=== PATIENT | female | born 1940 | race Caucasian/White ===

== ENCOUNTER 2018-10-28 16:27 | Inpatient (IN) | payer MEDICARE, OTHER | END 2018-10-29 13:35 | LOC: ER FS 16:27 → 4TH 18:22 ==

== ENCOUNTER 2018-11-24 11:29 | Emergency (ER) | payer MEDICARE ==
[~2018-11-24] VITALS: Ht 177.8 cm; Wt 87.5 kg
[~2018-11-24 11:29] MED LIST: ACET325C5 PO; ASPI-586 PO; CETI10CA PO; CHOL10007 PO; CYAN100088 PO; DIPH25CA79 PO; DONE10TA12 PO; LEVO25TA5 PO; LISI10TA2 PO; MELA1TAB8 PO; MEMA10TA2 PO; NAPR220C11 PO; QUET50TA PO
--- NOTE | 2018-11-24 11:54 | ED Chest Pain ---
General Stated Complaint: CHEST PAIN Source: patient, EMS Exam Limitations: clinical condition (dementia) History of Present Illness Date Seen by Provider: Nov 24, 2018 Time Seen by Provider: 11:35 Initial Comments The patient is a pleasant 78-year-old female who [facility] via EMS for evaluation of upper chest pain. The patient states "I feel like I'm going to ". Due to the patient's history of dementia she is a very poor historian. There is no other family to provide additional history at this time. EMS notes that the patient was bradycardic in route and believes that she has been to this facility recently for bradycardia. The patient has no other complaints at this time. She is alert, somewhat anxious, and appears to be in no distress. She denies nausea or vomiting, diaphoresis, shortness of breath, abdominal or back pain, dizziness or syncope. Review the patient's history suggests coronary artery disease status post emplacement and MD. On 10/28/18 she was admitted for the same complaint and evaluated by cardiology. Timing/Duration: 1-3 hours Severity/Quality: moderate Location: substernal Radiation: no radiation Activities at Onset: none ASA po APRICOT WASHER: No NTG SL APRICOT WASHER: No Allergies and Home Medications Allergies Coded Allergies: Penicillins (Verified Allergy, Unknown, 10/28/18) Home Medications Acetaminophen 325 Mg Capsule, 650 MG PO Q6H PRN for PAIN-MILD, (Reported) Aspirin 81 Mg Tablet.dr, 81 MG PO DAILY, (Reported) Cetirizine HCl 10 Mg Capsule, 10 MG PO DAILY, (Reported) Cholecalciferol (Vitamin D3) 1,000 Unit Capsule, 1,000 UNIT PO DAILY, (Reported) Cyanocobalamin (Vitamin B-12) 1,000 Mcg Tablet, 1,000 MCG PO DAILY, (Reported) Diphenhydramine HCl 25 Mg Capsule, 25 MG PO DAILY PRN for ITCHING, (Reported) PRN FOR ALLERGIES Donepezil HCl 10 Mg Tablet, 10 MG PO DAILY, (Reported) Levothyroxine Sodium 25 Mcg Tablet, 25 MCG PO DAILY, (Reported) Lisinopril 10 Mg Tablet, 10 MG PO DAILY, (Reported) Melatonin 1 Mg Tablet, 2 MG PO HS, (Reported) Memantine HCl 10 Mg Tablet, 10 MG PO BID, (Reported) Naproxen Sodium 220 Mg Capsule, 220 MG PO BID, (Reported) Quetiapine Fumarate 50 Mg Tablet, 50 MG PO HS, (Reported) Patient Home Medication List Home Medication List Reviewed: Yes Review of Systems Review of Systems Constitutional: no symptoms reported EENTM: No Symptoms Reported Respiratory: No Symptoms Reported Cardiovascular: Chest Pain Gastrointestinal: No Symptoms Reported Genitourinary: No Symptoms Reported Musculoskeletal: no symptoms reported Skin: no symptoms reported Psychiatric/Neurological: No Symptoms Reported Endocrine: No Symptoms Reported Hematologic/Lymphatic: No Symptoms Reported All Other Systems Reviewed Negative Unless Noted: Yes Past Kilodhs-Lgwijk-Xansdg Hx Past Med/Social Hx: Reviewed Nursing Past Med/Soc Hx Patient Social History 2nd Hand Smoke Exposure: No Recent Hopitalizations: No Seasonal Allergies Seasonal Allergies: No Past Medical History Surgeries: Yes Coronary Stent, Hysterectomy Respiratory: No Cardiac: Yes Coronary Artery Disease, Heart Attack Neurological: Yes Dementia Genitourinary: No Gastrointestinal: No Musculoskeletal: No Endocrine: Yes Hypothyroidsim HEENT: No Cancer: Yes Ovarian Psychosocial: No Integumentary: No Family Medical History Alzheimer's disease G8 SISTER Diabetes mellitus 19 MOTHER FH: lung cancer 19 FATHER G8 BROTHER Physical Exam Vital Signs Vital Signs - First Documented 11/24/18 11:35 Temp 97.3 Pulse 49 Resp 18 B/P (MAP) 184/73 (110) Pulse Ox 95 O2 Delivery Room Air Capillary Refill : Height, Weight, BMI Height: 5'10.00" Weight: 185lbs. 0.0oz. 83.185661mj; 26.5 BMI Method:Stated General Appearance: No Apparent Distress, WD/WN HEENT: PERRL/EOMI, Pharynx Normal Neck: Full Range of Motion, Normal Inspection, Non Tender, Supple Respiratory: Chest Non Tender, Lungs Clear, Normal Breath Sounds, No Accessory Muscle Use, No Respiratory Distress Cardiovascular: No Edema, No Gallop, Normal Peripheral Pulses, Bradycardia Gastrointestinal: Normal Bowel Sounds, No Pulsatile Mass, Non Tender, Soft Extremity: Normal Capillary Refill, Non Tender Neurologic/Psychiatric: Alert, Oriented x3, No Motor/Sensory Deficits, Normal Mood/Affect, recreation specialist II-XII Norm as Tested Skin: Normal Color, Warm/Dry Progress/Results/Core Measures Results/Orders Lab Results Laboratory Tests Test 11/24/18 11:55 11/24/18 15:45 Range/Units White Blood Count 6.6 4.3-11.0 10^3/uL Red Blood Count 4.22 L 4.35-5.85 10^6/uL Hemoglobin 12.6 11.5-16.0 G/DL Hematocrit 39 35-52 % Mean Corpuscular Volume 92 80-99 FL Mean Corpuscular Hemoglobin 30 25-34 PG Mean Corpuscular Hemoglobin Concent 33 32-36 G/DL Red Cell Distribution Width 13.4 10.0-14.5 % Platelet Count 271 130-400 10^3/uL Mean Platelet Volume 9.1 7.4-10.4 FL Neutrophils (%) (Auto) 59 42-75 % Lymphocytes (%) (Auto) 24 12-44 % Monocytes (%) (Auto) 8 0-12 % Eosinophils (%) (Auto) 9 0-10 % Basophils (%) (Auto) 1 0-10 % Neutrophils # (Auto) 3.9 1.8-7.8 X 10^3 Lymphocytes # (Auto) 1.6 1.0-4.0 X 10^3 Monocytes # (Auto) 0.5 0.0-1.0 X 10^3 Eosinophils # (Auto) 0.6 H 0.0-0.3 10^3/uL Basophils # (Auto) 0.1 0.0-0.1 10^3/uL Prothrombin Time 13.4 12.2-14.7 SEC INR Comment 1.0 0.8-1.4 Activated Partial Thromboplast Time 25 24-35 SEC Sodium Level 142 135-145 MMOL/L Potassium Level 4.1 3.6-5.0 MMOL/L Chloride Level 103 98-107 MMOL/L Carbon Dioxide Level 25 21-32 MMOL/L Anion Gap 14 5-14 MMOL/L Blood Urea Nitrogen 15 7-18 MG/DL Creatinine 1.17 0.60-1.30 MG/DL Estimat Glomerular Filtration Rate 45 BUN/Creatinine Ratio 13 Glucose Level 110 H 70-105 MG/DL Calcium Level 9.4 8.5-10.1 MG/DL Corrected Calcium 9.2 8.5-10.1 MG/DL Magnesium Level 2.1 1.6-2.4 MG/DL Total Bilirubin 0.3 0.1-1.0 MG/DL Aspartate Amino Transf (AST/SGOT) 21 5-34 U/L Alanine Aminotransferase (ALT/SGPT) 16 0-55 U/L Alkaline Phosphatase 69 40-136 U/L Creatine Kinase MB 2.1 <6.6 NG/ML Troponin I < 0.30 < 0.30 <0.30 NG/ML Pro-B-Type Natriuretic Peptide 51.8 <75.0 PG/ML Total Protein 6.9 6.4-8.2 GM/DL Albumin 4.2 3.2-4.5 GM/DL My Orders Orders - AUBREY CASTANO DO Cbc With Automated Diff (11/24/18 11:46) Magnesium (11/24/18 11:46) Chest 1 View Ap/Pa Only (11/24/18 11:46) Ekg Tracing (11/24/18 11:46) Comprehensive Metabolic Panel (11/24/18 11:46) Protime With Inr (11/24/18 11:46) Partial Thromboplastin Time (11/24/18 11:46) O2 (11/24/18 11:46) Monitor-Rhythm Ecg Trace Only (11/24/18 11:46) Ed Iv/Invasive Line Start (11/24/18 11:46) Creatine Kinase Mb (11/24/18 11:46) Troponin I (11/24/18 11:46) Probnp Fs (11/24/18 11:46) Aspirin Chewable Tablet (Baby Aspirin Ch (11/24/18 12:00) Troponin I (11/24/18 14:20) Aspirin Chewable Tablet (Baby Aspirin Ch (11/24/18 14:00) Medications Given in ED Current Medications Medications Dose Ordered Sig/Anna Route Start Time Stop Time Status Last Admin Dose Admin Aspirin 243 mg ONCE ONCE PO 11/24/18 14:00 11/24/18 14:01 DC 11/24/18 12:00 243 MG Vital Signs/I&O 11/24/18 11:35 Temp 97.3 Pulse 49 Resp 18 B/P (MAP) 184/73 (110) Pulse Ox 95 O2 Delivery Room Air Progress Progress Note : Progress Note @1410 - Patient and daughter updated on lab and imaging results. The patient reports feeling much better. The patient's daughter states this is the same type of episode that happened at the beginning of the month and the Dr. Leon, her tangled yarn spool straightener, and her head decided to continue medical management. We are waiting on the second troponin that is negative I plan on discharging the patient home and the patient's daughter agrees with this plan. @1630 - second troponin negative. The patient states she feels good and has no additional complaints. She is stable for discharge at this time. Advised close follow-up with the patient's PCP and/or tangled yarn spool straightener in the next 1-2 days and r eturn to the emergency department for new or worsening symptoms. EKG : Comment @1139 - Sinus bradycardia, rate of 52, normal axis, no acute ischemic findings noted, no STEMI, reviewed and interpreted by myself Diagnostic Imaging Comments [facility] SERVICES[facility] [place], [place] NAME: CLIFTON ROBLES [facility] REC#: [id number] PT STATUS: REG ER : 1940 PHYSICIAN: AUBREY CASTANO DO ADMIT DATE: 11/24/18/ER FS Draft Date of Exam:11/24/18 CHEST 1 VIEW AP/PA ONLY INDICATION: Chest pain. COMPARISON: 10/28/2018 FINDINGS: Single frontal view of the chest demonstrates normal heart size and pulmonary vascularity. The lungs are well aerated and clear. No large pleural effusion or pneumothorax is seen. The visualized osseous structures show no acute abnormalities. IMPRESSION: 1. No acute cardiopulmonary process. Dictated on workstation # [id number] Dict: 11/24/18 1241 Trans: 11/24/18 1244 [facility] [id number] Interpreted by: ARNULFO LYN MD Electronically signed by: Departure Impression Primary Impression: Chest pain Disposition: 01 HOME, SELF-CARE Condition: Stable Departure-Patient Inst. Decision time for Depature: 16:30 Referrals: ADITI LEON MD NO,LOCAL PHYSICIAN (PCP) Primary Care Physician Patient Instructions: Chest Pain Add. Discharge Instructions: Follow-up with Dr. Leon in the next 1-2 days. Return to the emergency Department immediately for new or worsening symptoms. AUBREY CASTANO DO Nov 24, 2018 11:54
[2018-11-24] MEDS: ASPIRIN 81 MG CHEW (CHILDREN'S ASA) PO ONE ×2 (12:00→13:47)
[2018-11-24 12:13] LABS: HEMATOCRIT 39 % (35-52); HEMOGLOBIN 12.6 G/DL (11.5-16.0); MEAN CORPUSCULAR HEMOGLOBIN 30 PG (25-34); MEAN CORPUSCULAR HGB CONC 33 G/DL (32-36); MEAN CORPUSCULAR VOLUME 92 FL (80-99); PLATELET COUNT 271 10^3/uL (130-400); RED CELL DISTRIBUTION WIDTH 13.4 % (10.0-14.5); WHITE BLOOD COUNT 6.6 10^3/uL (4.3-11.0)
[2018-11-24 12:14] LABS: BASOPHILS # (AUTO) 0.1 10^3/uL (0.0-0.1); BASOPHILS % (AUTO) 1 % (0-10); EOSINOPHILS # (AUTO) 0.6 10^3/uL (0.0-0.3); EOSINOPHILS % (AUTO) 9 % (0-10); LYMPHOCYTES # (AUTO) 1.6 X 10^3 (1.0-4.0); LYMPHOCYTES % (AUTO) 24 % (12-44); MEAN PLATELET VOLUME 9.1 FL (7.4-10.4); MONOCYTES # (AUTO) 0.5 X 10^3 (0.0-1.0); MONOCYTES % (AUTO) 8 % (0-12); NEUTROPHILS # (AUTO) 3.9 X 10^3 (1.8-7.8); NEUTROPHILS % (AUTO) 59 % (42-75)
[2018-11-24 12:31] LABS: PROTHROMBIN TIME PATIENT 13.4 SEC (12.2-14.7)
[2018-11-24 12:41] LABS: BILIRUBIN,TOTAL 0.3 MG/DL (0.1-1.0); CALCIUM 9.4 MG/DL (8.5-10.1); CREATININE SERUM 1.17 MG/DL (0.60-1.30); MAGNESIUM 2.1 MG/DL (1.6-2.4); POTASSIUM 4.1 MMOL/L (3.6-5.0)
[2018-11-24 12:42] LABS: ALBUMIN 4.2 GM/DL (3.2-4.5); TOTAL PROTEIN 6.9 GM/DL (6.4-8.2)
--- NOTE | 2018-11-24 12:44 | Diagnostic Imaging Report ---
INDICATION: Chest pain. COMPARISON: 10/28/2018 FINDINGS: Single frontal view of the chest demonstrates normal heart size and pulmonary vascularity. The lungs are well aerated and clear. No large pleural effusion or pneumothorax is seen. The visualized osseous structures show no acute abnormalities. IMPRESSION: 1. No acute cardiopulmonary process. Dictated by: Dictated on workstation # [id number]
[2018-11-24 14:58] LABS: CREATINE KINASE MB 2.1 NG/ML (<6.6)
[2018-11-24 16:43] VITALS: BP 130/58
== END 2018-11-24 16:45 | disposition home or self-care (01) ==
LOC: EDUNIT# 11:29 → ER FS 11:31
DX: R07.9 Chest pain, unspecified (principal); F03.90 Unspecified dementia, unspecified severity, without behavioral disturbance, psychotic disturbance, mood disturbance, and anxiety; I25.10 Atherosclerotic heart disease of native coronary artery without angina pectoris; I25.2 Old myocardial infarction; E03.9 Hypothyroidism, unspecified; Z85.43 Personal history of malignant neoplasm of ovary; Z88.0 Allergy status to penicillin; Z79.82 Long term (current) use of aspirin; Z95.5 Presence of coronary angioplasty implant and graft; Z90.710 Acquired absence of both cervix and uterus; Z80.1 Family history of malignant neoplasm of trachea, bronchus and lung
CPT/HCPCS: 36415; 71045; 80053; 82553; 83735; 83880; 84484; 85025; 85610; 85730; 93005; 93041

== ENCOUNTER 2020-04-12 14:13 | Emergency (ER) | payer MEDICARE, OTHER ==
[~2020-04-12 14:13] MED LIST changes: -ACET325C5 PO; +ACET325C7 PO
--- NOTE | 2020-04-12 14:23 | ED Fall/Injury ---
General Stated Complaint: STROKE LIKE SYMPTOMS History of Present Illness Date Seen by Provider: Apr 12, 2020 Time Seen by Provider: 14:15 Initial Comments 79-year-old female sent in from the custodial by EMS. Patient had a fall this morning but they're unsure if she hit her head. Her patient was seen normal around 12:30. Round to when they rechecked on her that there was some mild left- sided weakness. Upon arrival patient has some mild to minimal facial droop but otherwise moves both of her upper and lower extremities equally with equal strength. Patient is a DO NOT RESUSCITATE with minimal interventions. No reports of fevers chills nausea vomiting or other systemic complaints. Patient has dementia and is at her baseline per EMS upon arrival Allergies and Home Medications Allergies Coded Allergies: Penicillins (Verified Allergy, Unknown, 10/28/18) Home Medications Acetaminophen 325 Mg Capsule, 650 MG PO Q6H PRN for PAIN-MILD, (Reported) Aspirin 81 Mg Tablet.dr, 81 MG PO DAILY, (Reported) Cetirizine HCl 10 Mg Capsule, 10 MG PO DAILY, (Reported) Cholecalciferol (Vitamin D3) 1,000 Unit Capsule, 1,000 UNIT PO DAILY, (Reported) Cyanocobalamin (Vitamin B-12) 1,000 Mcg Tablet, 1,000 MCG PO DAILY, (Reported) Diphenhydramine HCl 25 Mg Capsule, 25 MG PO DAILY PRN for ITCHING, (Reported) PRN FOR ALLERGIES Donepezil HCl 10 Mg Tablet, 10 MG PO DAILY, (Reported) Levothyroxine Sodium 25 Mcg Tablet, 25 MCG PO DAILY, (Reported) Lisinopril 10 Mg Tablet, 10 MG PO DAILY, (Reported) Melatonin 1 Mg Tablet, 2 MG PO HS, (Reported) Memantine HCl 10 Mg Tablet, 10 MG PO BID, (Reported) Naproxen Sodium 220 Mg Capsule, 220 MG PO BID, (Reported) Quetiapine Fumarate 50 Mg Tablet, 50 MG PO HS, (Reported) Patient Home Medication List Home Medication List Reviewed: Yes Review of Systems Review of Systems Constitutional: see HPI; No chills, No fever Ears, Nose, Mouth, Throat: see HPI Respiratory: no symptoms reported Cardiovascular: no symptoms reported Gastrointestinal: no symptoms reported Genitourinary: no symptoms reported Psychiatric/Neurological: See HPI Patient with dementia with limited review of systems but no complaints per her Past Nfhmmke-Waykma-Hezmqi Hx Past Med/Social Hx: Reviewed Nursing Past Med/Soc Hx Patient Social History 2nd Hand Smoke Exposure: No Recent Hopitalizations: No Seasonal Allergies Seasonal Allergies: No Past Medical History Surgeries: Yes Coronary Stent, Hysterectomy Respiratory: No Cardiac: Yes Coronary Artery Disease, Heart Attack Neurological: Yes Dementia Genitourinary: No Gastrointestinal: No Musculoskeletal: No Endocrine: Yes Hypothyroidsim HEENT: No Cancer: Yes Ovarian Psychosocial: No Integumentary: No Family Medical History Alzheimer's disease G8 SISTER Diabetes mellitus 19 MOTHER FH: lung cancer 19 FATHER G8 BROTHER Physical Exam Vital Signs Vital Signs - First Documented 04/12/20 14:15 Temp 37.5 Pulse 70 Resp 22 B/P (MAP) 132/51 (78) Pulse Ox 94 O2 Delivery Room Air Capillary Refill : Height, Weight, BMI Height: 5'10.00" Weight: 193lbs. 0.0oz. 87.157489jo; 26.5 BMI Method:Actual General Appearance: no apparent distress HEENT: PERRL/EOMI, pharynx normal Neck: full range of motion, supple Cardiovascular: regular rate, rhythm Respiratory: chest non-tender, lungs clear Gastrointestinal: non tender, soft Neurologic/Psychiatric: alert, normal mood/affect, facial droop (very minimal left-sided droop), other (NIH score of 1) Skin: normal color Progress/Results/Core Measures Results/Orders Lab Results Laboratory Tests Test 04/12/20 14:20 04/12/20 15:24 04/12/20 15:45 Range/Units White Blood Count 10.3 4.3-11.0 10^3/uL Red Blood Count 4.20 L 4.35-5.85 10^6/uL Hemoglobin 12.5 11.5-16.0 G/DL Hematocrit 38 35-52 % Mean Corpuscular Volume 91 80-99 FL Mean Corpuscular Hemoglobin 30 25-34 PG Mean Corpuscular Hemoglobin Concent 33 32-36 G/DL Red Cell Distribution Width 13.7 10.0-14.5 % Platelet Count 295 130-400 10^3/uL Mean Platelet Volume 9.2 7.4-10.4 FL Immature Granulocyte % (Auto) 1 % Neutrophils (%) (Auto) 82 H 42-75 % Lymphocytes (%) (Auto) 10 L 12-44 % Monocytes (%) (Auto) 5 0-12 % Eosinophils (%) (Auto) 1 0-10 % Basophils (%) (Auto) 0 0-10 % Neutrophils # (Auto) 8.6 H 1.8-7.8 X 10^3 Lymphocytes # (Auto) 1.1 1.0-4.0 X 10^3 Monocytes # (Auto) 0.6 0.0-1.0 X 10^3 Eosinophils # (Auto) 0.1 0.0-0.3 10^3/uL Basophils # (Auto) 0.0 0.0-0.1 10^3/uL Immature Granulocyte # (Auto) 0.1 0.0-0.1 10^3/uL Prothrombin Time 13.8 12.2-14.7 SEC INR Comment 1.0 0.8-1.4 Activated Partial Thromboplast Time 25 24-35 SEC Sodium Level 138 135-145 MMOL/L Potassium Level 4.4 3.6-5.0 MMOL/L Chloride Level 102 98-107 MMOL/L Carbon Dioxide Level 26 21-32 MMOL/L Anion Gap 10 5-14 MMOL/L Blood Urea Nitrogen 26 H 7-18 MG/DL Creatinine 1.70 H 0.60-1.30 MG/DL Estimat Glomerular Filtration Rate 29 BUN/Creatinine Ratio 15 Glucose Level 131 H 70-105 MG/DL Calcium Level 8.9 8.5-10.1 MG/DL Corrected Calcium 9.1 8.5-10.1 MG/DL Total Bilirubin 0.5 0.1-1.0 MG/DL Aspartate Amino Transf (AST/SGOT) 67 H 5-34 U/L Alanine Aminotransferase (ALT/SGPT) 24 0-55 U/L Alkaline Phosphatase 67 40-136 U/L Troponin I < 0.30 <0.30 NG/ML Total Protein 6.4 6.4-8.2 GM/DL Albumin 3.7 3.2-4.5 GM/DL Glucometer 101 70-110 MG/DL Urine Color DARK YELLOW Urine Clarity SL CLOUDY Urine pH 6.0 5-9 Urine Specific [place] >=1.030 1.016-1.022 Urine Protein TRACE H NEGATIVE Urine Glucose (UA) NEGATIVE NEGATIVE Urine Ketones TRACE H NEGATIVE Urine Nitrite NEGATIVE NEGATIVE Urine Bilirubin NEGATIVE NEGATIVE Urine Urobilinogen 0.2 < = 1.0 MG/DL Urine Leukocyte Esterase NEGATIVE NEGATIVE Urine RBC (Auto) 2+ H NEGATIVE Urine RBC 10-25 H /HPF Urine WBC 0-2 /HPF Urine Squamous Epithelial Cells 2-5 /HPF Urine Crystals PRESENT H /LPF Urine Amorphous Sediment FEW BENITO URATES H /LPF Urine Bacteria FEW H /HPF Urine Casts PRESENT /LPF Urine Hyaline Casts 5-10 H /LPF Urine Mucus LARGE H /LPF Urine Culture Indicated NO My Orders Orders - MARTINEZ,LIDIA L DO Cbc With Automated Diff (04/12/20 14:18) Protime With Inr (04/12/20 14:18) Partial Thromboplastin Time (04/12/20 14:18) Comprehensive Metabolic Panel (04/12/20 14:18) Troponin I Fs (04/12/20 14:18) Ua Culture If Indicated (04/12/20 14:18) Chest 1 View Ap/Pa Only (04/12/20 14:18) Ekg Tracing (04/12/20 14:18) Nothing By Mouth (04/12/20 Lunch) Accucheck Stat ONCE (04/12/20 14:18) Ed Iv/Invasive Line Start (04/12/20 14:18) Vital Signs Stroke Patient Q15M (04/12/20 14:18) Ct Head Wo-R/O Stroke (04/12/20 14:18) Intake & Output 06,14,22 (04/12/20 14:18) Monitor-Rhythm Ecg Trace Only (04/12/20 14:18) Dysphagia Screening Tool (04/12/20 14:18) Vital Signs/I&O 04/12/20 14:15 Temp 37.5 Pulse 70 Resp 22 B/P (MAP) 132/51 (78) Pulse Ox 94 O2 Delivery Room Air Progress Progress Note : Time: 15:48 Progress Note Patient with some minimal left-sided droop, I'm unsure if this is new or old. Otherwise she has no acute findings. She has a negative head CT negative labs. Patient is a DO NOT RESUSCITATE and had a do not transport order at the custodial. At this time we'll there is no further workup or evaluation that would be indicated with her minimal prevention request. Patient will be transferred back to the custodial in stable condition. They can follow-up outpatient with her primary if they feel that any further workup is warranted. Patient and related the hallways without any difficulty prior to discharge and states that she is wants to go home and go back to her room because its about suppertime Initial ECG Impression Date: Apr 12, 2020 Initial ECG Impression Time: 15:15 Initial ECG Rate: 69 Initial ECG Rhythm: Normal Sinus Initial ECG Impression: Normal Comment nsr hr 69, no acute findings Departure Impression Primary Impression: Dementia Qualified Codes: F03.91 - Unspecified dementia with behavioral disturbance Additional Impression: Weakness Disposition: 01 HOME, SELF-CARE Condition: Stable Departure-Patient Inst. Referrals: NO,LOCAL PHYSICIAN (PCP/Family) Primary Care Physician Patient Instructions: Transient Ischemic Attack (DC), Weakness ED Add. Discharge Instructions: Follow-up with Dr. bhardwaj for further workup and evaluation as needed LIDIA MARTINEZ DO Apr 12, 2020 14:23
[2020-04-12 14:34] LABS: BASOPHILS % (AUTO) 0 % (0-10); EOSINOPHILS % (AUTO) 1 % (0-10); HEMATOCRIT 38 % (35-52); HEMOGLOBIN 12.5 G/DL (11.5-16.0); LYMPHOCYTES % (AUTO) 10 % (12-44); MEAN CORPUSCULAR HEMOGLOBIN 30 PG (25-34); MEAN CORPUSCULAR HGB CONC 33 G/DL (32-36); MEAN CORPUSCULAR VOLUME 91 FL (80-99); MEAN PLATELET VOLUME 9.2 FL (7.4-10.4); MONOCYTES % (AUTO) 5 % (0-12); NEUTROPHILS % (AUTO) 82 % (42-75); PLATELET COUNT 295 10^3/uL (130-400); WHITE BLOOD COUNT 10.3 10^3/uL (4.3-11.0)
[2020-04-12 14:35] LABS: EOSINOPHILS # (AUTO) 0.1 10^3/uL (0.0-0.3); LYMPHOCYTES # (AUTO) 1.1 X 10^3 (1.0-4.0); MONOCYTES # (AUTO) 0.6 X 10^3 (0.0-1.0); NEUTROPHILS # (AUTO) 8.6 X 10^3 (1.8-7.8)
[2020-04-12 14:49] LABS: PROTHROMBIN TIME PATIENT 13.8 SEC (12.2-14.7)
--- NOTE | 2020-04-12 14:50 | Diagnostic Imaging Report ---
INDICATION: Fall. Left-sided weakness. COMPARISON: 11/24/2018 FINDINGS: Single frontal radiographic view of the chest was obtained and demonstrates low inspiratory volumes and patchy bibasilar opacities. There is no large effusion or pneumothorax. Cardiac silhouette and pulmonary vasculature are within normal limits. There is calcified aortic atherosclerosis. Osseous structures show no acute abnormalities. IMPRESSION: 1. Low lung volumes with probable patchy bibasilar atelectasis. Dictated by: Dictated on workstation # [id number]
[2020-04-12 14:55] LABS: ALANINE AMINOTRANSFERASE 24 U/L (0-55); ALKALINE PHOSPHATASE 67 U/L (40-136); BILIRUBIN,TOTAL 0.5 MG/DL (0.1-1.0); BUN/CREATININE RATIO 15; CALCIUM 8.9 MG/DL (8.5-10.1); CARBON DIOXIDE 26 MMOL/L (21-32); CHLORIDE 102 MMOL/L (98-107); GFR ESTIMATED 29; GLUCOSE 131 MG/DL (70-105); POTASSIUM 4.4 MMOL/L (3.6-5.0); SODIUM 138 MMOL/L (135-145)
[2020-04-12 14:56] LABS: ALBUMIN 3.7 GM/DL (3.2-4.5); TOTAL PROTEIN 6.4 GM/DL (6.4-8.2)
--- NOTE | 2020-04-12 15:07 | Diagnostic Imaging Report ---
CLINICAL INDICATION: Patient with possible stroke. Patient with left-sided weakness. EXAM: Axial CT scan of the brain without IV contrast with coronal and sagittal reformatted images. Auto Exposure Controls were utilized during the CT exam to meet ALARA standards for radiation dose reduction. COMPARISON: None. FINDINGS: There is no evidence of acute cerebral infarct, intracranial hemorrhage, or gross mass effect. There is diffuse brain parenchymal volume loss with the temporal lobes affected the most. There is severe atrophy of the bilateral temporal lobes. There is diffuse patchy and confluent low-attenuation white matter changes involving both cerebral hemispheres and periventricular regions, suspected to represent chronic small vessel ischemic disease and leukoaraiosis. There is normal taylor-white matter distinction. There is no significant midline shift or herniation. There is no evidence of hydrocephalus. The basal cisterns are unremarkable. The skull, extracranial soft tissue, and orbits are unremarkable. There is mild mucosal thickening involving both maxillary sinuses. Temporal bones show no significant abnormality. IMPRESSION: 1: There is no gross CT evidence of acute intracranial process. There is no intracranial hemorrhage or vascular territory acute infarct. 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 3: There is diffuse brain parenchymal volume loss including severe atrophy of the bilateral temporal lobes. Results of this report discussed with Dr. Kwabena Tate via the telephone on 04/12/2020 at 1500 hours. Dictated by: Dictated on workstation # [id number]
[2020-04-12 16:05] LABS: BILIRUBIN,URINE NEGATIVE (NEGATIVE); CLARITY,URINE SL CLOUDY; COLOR,URINE DARK YELLOW; GLUCOSE, URINE (UA) NEGATIVE (NEGATIVE); KETONES,URINE TRACE (NEGATIVE); LEUKOCYTE ESTERASE ,URINE NEGATIVE (NEGATIVE); NITRITE,URINE NEGATIVE (NEGATIVE); PROTEIN,URINE TRACE (NEGATIVE); WBC,URINE 0-2 /HPF
[2020-04-12 16:06] LABS: AMORPHOUS SEDIMENT,UR FEW AMOR URATES /LPF; BACTERIA,URINE FEW /HPF
--- NOTE | 2020-04-12 16:45 | NUR ---
Patient ambulatory in the hallway with standby assistance.
[2020-04-12 17:00] VITALS: BP 144/58
== END 2020-04-12 17:00 | disposition home or self-care (01) ==
LOC: EDUNIT# 14:13 → ER FS 14:14
DX: F03.90 Unspecified dementia, unspecified severity, without behavioral disturbance, psychotic disturbance, mood disturbance, and anxiety (principal); R53.1 Weakness; E03.9 Hypothyroidism, unspecified; I25.2 Old myocardial infarction; Z88.0 Allergy status to penicillin; Z95.5 Presence of coronary angioplasty implant and graft; Z85.43 Personal history of malignant neoplasm of ovary; Z80.1 Family history of malignant neoplasm of trachea, bronchus and lung; Z83.3 Family history of diabetes mellitus; Z79.890 Hormone replacement therapy; Z79.82 Long term (current) use of aspirin
CPT/HCPCS: 36415; 70450; 71045; 80053; 81000; 82962; 84484; 85025; 85610; 85730; 93005; 93041

== ENCOUNTER → 2020-04-18 | Outpatient (CLI) | payer MEDICARE, OTHER ==
[~2020-04-18] MED LIST changes: +MELA1TAB51 PO; -MELA1TAB8 PO
[2020-04-18 21:59] LABS: CLARITY,URINE CLERA; COLOR,URINE YELLOW; GLUCOSE, URINE (UA) NEGATIVE (NEGATIVE); KETONES,URINE NEGATIVE (NEGATIVE); PH,URINE 6.5 (5-9); PROTEIN,URINE NEGATIVE (NEGATIVE)
[2020-04-18 22:00] LABS: BACTERIA,URINE NEGATIVE /HPF; BILIRUBIN,URINE NEGATIVE (NEGATIVE); LEUKOCYTE ESTERASE ,URINE NEGATIVE (NEGATIVE); NITRITE,URINE NEGATIVE (NEGATIVE); WBC,URINE RARE /HPF
== END ==
LOC: LAB FS 21:46
PROVIDERS: ATTEND Family Medicine
DX: N39.0 Urinary tract infection, site not specified (principal)
CPT/HCPCS: 81000

== ENCOUNTER 2020-05-01 09:53 | Emergency (ER) | payer MEDICARE, OTHER ==
[~2020-05-01] VITALS: Ht 162 cm; Wt 90.0 kg
[2020-05-01] MEDS ORDERED: PIPERACILLIN SODIUM/TAZOBACTAM 4.5 GM in NS (IVPB) 100 ML IV ONE (10:15)
--- NOTE | 2020-05-01 10:30 | Diagnostic Imaging Report ---
INDICATION: Short of breath and fever. Positive for COVID. Portable chest shows normal heart size and vascularity. There is right basilar atelectasis. There is a patchy left perihilar infiltrate. There is no effusion or pneumothorax. IMPRESSION: There is a left lung infiltrate consistent with pneumonia which has developed since the 04/12/2020 study. The basilar atelectasis is similar to the prior exam. Dictated by: Dictated on workstation # [id number]
[2020-05-01 10:34] LABS: BASOPHILS % (AUTO) 0 % (0-10); EOSINOPHILS # (AUTO) 0.1 10^3/uL (0.0-0.3); EOSINOPHILS % (AUTO) 1 % (0-10); HEMATOCRIT 38 % (35-52); HEMOGLOBIN 12.2 G/DL (11.5-16.0); LYMPHOCYTES # (AUTO) 0.8 X 10^3 (1.0-4.0); LYMPHOCYTES % (AUTO) 11 % (12-44); MEAN CORPUSCULAR HEMOGLOBIN 29 PG (25-34); MEAN CORPUSCULAR HGB CONC 32 G/DL (32-36); MEAN CORPUSCULAR VOLUME 91 FL (80-99); MEAN PLATELET VOLUME 9.6 FL (7.4-10.4); MONOCYTES # (AUTO) 0.3 X 10^3 (0.0-1.0); MONOCYTES % (AUTO) 4 % (0-12); NEUTROPHILS # (AUTO) 6.2 X 10^3 (1.8-7.8); NEUTROPHILS % (AUTO) 83 % (42-75); PLATELET COUNT 249 10^3/uL (130-400); WHITE BLOOD COUNT 7.4 10^3/uL (4.3-11.0)
[2020-05-01 11:12] LABS: ABG PCO2 43 MMHG (35-45); ABG PH 7.44 (7.37-7.43); ABG PO2 63 MMHG (79-93)
[2020-05-01 11:13] LABS: ABG BASE EXCESS 4.5 MMOL/L (-2.5-2.5); ABG OXYGEN SATURATION 93 % (94-100); ABG TCO2 30.5 MMOL/L (21.0-31.0); ALLENS TEST NO; PATIENT TEMP 97.9; VENTILATOR NO
[2020-05-01 11:14] LABS: INSPIRED O2 2 L
[2020-05-01 11:15] LABS: INR 1.1 (0.8-1.4); PROTHROMBIN TIME PATIENT 14.4 SEC (12.2-14.7)
[2020-05-01 11:16] LABS: ALBUMIN 3.3 GM/DL (3.2-4.5); BILIRUBIN,TOTAL 0.3 MG/DL (0.1-1.0); CREATININE SERUM 1.32 MG/DL (0.60-1.30); POTASSIUM 3.9 MMOL/L (3.6-5.0); TOTAL PROTEIN 6.5 GM/DL (6.4-8.2)
--- NOTE | 2020-05-01 12:39 | ED General ---
General Chief Complaint: Respiratory Problems Stated Complaint: SOB; FEVER; COVID+ Nursing Triage Note: [facility] SENT PT TO ED FOR LOW OXYGEN SATS. PT SATS UPON ARRIVING TO ER ARE 96% ON HER NORMAL 2 L OF OXYGEN. AFEBRILE. PTS HANDS ARE COLD AND POOR PLACE TO GET AN ACCURATE OXYGEN SAT. Nursing Sepsis Screen: No Definite Risk History of Present Illness Date Seen by Provider: May 01, 2020 Time Seen by Provider: 10:40 Initial Comments Patient is an 79-year-old female evaluated in this emergency department on 04/23/2020 and diagnosed with Covid presents with persistent shortness of breath with reported hypoxia at [facility] facility. Patient was prescribed prednisone Zithromax and Mucinex DM at bedtime patient is supplemental O2 dependent and wears 2 L at baseline. Patient was reported to have an O2 saturation of 84% and a fever of 100.1. She not appear to be in respiratory distress. No Tylenol or medications were given prior to ED arrival. Other than generalized weakness body aches, patient denies any acute symptoms or complaints. Currently afebrile in the emergency department and satting 94% on 2 L with. No signs of respiratory distress present. Patient is able to speak in complete sentences without stopping. No nausea vomiting chest pain abdominal pain. Leg pain or swelling. No other symptoms or complaints. Timing/Duration: 1 Hour Severity: Mild, Moderate Modifying Factors: improves with Other Associated Systoms: Other Allergies and Home Medications Allergies Coded Allergies: Penicillins (Verified Allergy, Unknown, 10/28/18) Home Medications Acetaminophen 325 Mg Capsule, 650 MG PO Q6H PRN for PAIN-MILD, (Reported) Aspirin 81 Mg Tablet.dr, 81 MG PO DAILY, (Reported) Cetirizine HCl 10 Mg Capsule, 10 MG PO DAILY, (Reported) Cholecalciferol (Vitamin D3) 1,000 Unit Capsule, 1,000 UNIT PO DAILY, (Reported) Cyanocobalamin (Vitamin B-12) 1,000 Mcg Tablet, 1,000 MCG PO DAILY, (Reported) Diphenhydramine HCl 25 Mg Capsule, 25 MG PO DAILY PRN for ITCHING, (Reported) PRN FOR ALLERGIES Donepezil HCl 10 Mg Tablet, 10 MG PO DAILY, (Reported) Levothyroxine Sodium 25 Mcg Tablet, 25 MCG PO DAILY, (Reported) Lisinopril 10 Mg Tablet, 10 MG PO DAILY, (Reported) Melatonin 1 Mg Tablet, 2 MG PO HS, (Reported) Memantine HCl 10 Mg Tablet, 10 MG PO BID, (Reported) Naproxen Sodium 220 Mg Capsule, 220 MG PO BID, (Reported) Quetiapine Fumarate 50 Mg Tablet, 50 MG PO HS, (Reported) Patient Home Medication List Home Medication List Reviewed: Yes Review of Systems Review of Systems Constitutional: see HPI EENTM: see HPI Respiratory: see HPI Cardiovascular: see HPI Gastrointestinal: see HPI Genitourinary: see HPI Musculoskeletal: see HPI Skin: see HPI Psychiatric/Neurological: See HPI Hematologic/Lymphatic: See HPI Immunological/Allergic: see HPI All Other Systems Reviewed Negative Unless Noted: Yes Past Tsaoglf-Iqrkuu-Rbcknl Hx Past Med/Social Hx: Reviewed Nursing Past Med/Soc Hx Patient Social History Alcohol Use: Denies Use Smoking Status: Unknown if Ever Smoked 2nd Hand Smoke Exposure: No Recent Infectious Disease Expo: No Recent Hopitalizations: No Seasonal Allergies Seasonal Allergies: No Past Medical History Surgeries: Yes Coronary Stent, Hysterectomy Respiratory: No Cardiac: Yes Coronary Artery Disease, Heart Attack Neurological: Yes Dementia Genitourinary: No Gastrointestinal: No Musculoskeletal: No Endocrine: Yes Hypothyroidsim HEENT: No Cancer: Yes Ovarian Psychosocial: No Integumentary: No Family Medical History Alzheimer's disease G8 SISTER Diabetes mellitus 19 MOTHER FH: lung cancer 19 FATHER G8 BROTHER Physical Exam Vital Signs Vital Signs - First Documented 05/01/20 05/01/20 09:55 10:13 Temp 36.3 Pulse 69 Resp 18 B/P (MAP) 112/58 (76) Pulse Ox 96 O2 Delivery Nasal Cannula O2 Flow Rate 2.00 FiO2 96 Capillary Refill : Less Than 3 Seconds Height, Weight, BMI Height: 5'10.00" Weight: 193lbs. 0.0oz. [id number]; 34.00 BMI Method:Actual General Appearance: Other Eyes: Bilateral Eye Normal Inspection, Bilateral Eye PERRL, Bilateral Eye EOMI HEENT: PERRL/EOMI, Pharynx Normal Neck: Supple Respiratory: Decreased Breath Sounds, Rhonci Cardiovascular: Regular Rate, Rhythm, Normal Peripheral Pulses Gastrointestinal: Non Tender, Soft Extremity: Normal Capillary Refill Neurologic/Psychiatric: Alert, Oriented x3, No Motor/Sensory Deficits, supervisor paste mixing II- XII Norm as Tested Skin: Normal Color Focused Exam Sepsis Stage: Ruled Out Lactate Level 05/01/20 10:00: Lactic Acid Level 1.20 Lactic Acid Level Laboratory Tests Test 05/01/20 10:00 Lactic Acid Level 1.20 MMOL/L (0.50-2.00) Progress/Results/Core Measures Suspected Sepsis Recent Fever Within 48 Hours: Yes Infection Criteria Present: Documented Infection New/Unexplained Altered Menta: No Sepsis Screen: No Definite Risk SIRS Temperature: Pulse: 69 Respiratory Rate: 18 Laboratory Tests 05/01/20 10:00: White Blood Count 7.4 Blood Pressure 112 /58 Mean: 76 05/01/20 10:00: Lactic Acid Level 1.20 Laboratory Tests 05/01/20 10:00: Creatinine 1.32H, INR Comment 1.1, Platelet Count 249, Total Bilirubin 0.3 Results/Orders Lab Results Laboratory Tests Test 05/01/20 10:00 05/01/20 10:32 Range/Units White Blood Count 7.4 4.3-11.0 10^3/uL Red Blood Count 4.16 L 4.35-5.85 10^6/uL Hemoglobin 12.2 11.5-16.0 G/DL Hematocrit 38 35-52 % Mean Corpuscular Volume 91 80-99 FL Mean Corpuscular Hemoglobin 29 25-34 PG Mean Corpuscular Hemoglobin Concent 32 32-36 G/DL Red Cell Distribution Width 14.0 10.0-14.5 % Platelet Count 249 130-400 10^3/uL Mean Platelet Volume 9.6 7.4-10.4 FL Immature Granulocyte % (Auto) 1 % Neutrophils (%) (Auto) 83 H 42-75 % Lymphocytes (%) (Auto) 11 L 12-44 % Monocytes (%) (Auto) 4 0-12 % Eosinophils (%) (Auto) 1 0-10 % Basophils (%) (Auto) 0 0-10 % Neutrophils # (Auto) 6.2 1.8-7.8 X 10^3 Lymphocytes # (Auto) 0.8 L 1.0-4.0 X 10^3 Monocytes # (Auto) 0.3 0.0-1.0 X 10^3 Eosinophils # (Auto) 0.1 0.0-0.3 10^3/uL Basophils # (Auto) 0.0 0.0-0.1 10^3/uL Immature Granulocyte # (Auto) 0.1 0.0-0.1 10^3/uL Prothrombin Time 14.4 12.2-14.7 SEC INR Comment 1.1 0.8-1.4 Activated Partial Thromboplast Time 28 24-35 SEC Sodium Level 143 135-145 MMOL/L Potassium Level 3.9 3.6-5.0 MMOL/L Chloride Level 107 98-107 MMOL/L Carbon Dioxide Level 27 21-32 MMOL/L Anion Gap 9 5-14 MMOL/L Blood Urea Nitrogen 32 H 7-18 MG/DL Creatinine 1.32 H 0.60-1.30 MG/DL Estimat Glomerular Filtration Rate 39 BUN/Creatinine Ratio 24 Glucose Level 103 70-105 MG/DL Lactic Acid Level 1.20 0.50-2.00 MMOL/L Calcium Level 9.0 8.5-10.1 MG/DL Corrected Calcium 9.6 8.5-10.1 MG/DL Total Bilirubin 0.3 0.1-1.0 MG/DL Aspartate Amino Transf (AST/SGOT) 30 5-34 U/L Alanine Aminotransferase (ALT/SGPT) 23 0-55 U/L Alkaline Phosphatase 62 40-136 U/L Total Protein 6.5 6.4-8.2 GM/DL Albumin 3.3 3.2-4.5 GM/DL Blood Gas Puncture Site LEFT ADIAL Blood Gas Patient Temperature 97.9 Arterial Blood pH 7.44 H 7.37-7.43 Arterial Blood Partial Pressure CO2 43 35-45 MMHG Arterial Blood Partial Pressure O2 63 L 79-93 MMHG Arterial Blood HCO3 29 H 23-27 MMOL/L Arterial Blood Total CO2 30.5 21.0-31.0 MMOL/L Arterial Blood Oxygen Saturation 93 L 94-100 % Arterial Blood Base Excess 4.5 H -2.5-2.5 MMOL/L Kvng Test NO Blood Gas Ventilator Setting NO Blood Gas Inspired Oxygen 2 L Micro Results Microbiology 05/01/20 Influenza Types A,B Antigen (SARA) - Final, Complete My Orders Orders - SARAH HOPPER DO Cbc With Automated Diff (05/01/20 10:08) Comprehensive Metabolic Panel (05/01/20 10:08) Blood Culture (05/01/20 10:08) Sputum Culture (05/01/20 10:08) Urinalysis (05/01/20 10:08) Urine Culture (05/01/20 10:08) Protime With Inr (05/01/20 10:08) Partial Thromboplastin Time (05/01/20 10:08) Chest 1 View Ap/Pa Only (05/01/20 10:08) Ed Iv/Invasive Line Start (05/01/20 10:08) Ed Iv/Invasive Line Start (05/01/20 10:08) Vital Signs Adult Sepsis Patie Q15M (05/01/20 10:08) O2 (05/01/20 10:08) Remove Rings In Anticipation O (05/01/20 10:08) Lactic Acid Analyzer (05/01/20 10:08) Influenza A And B Antigens (05/01/20 10:08) Piperacillin Sodium/Tazobactam (Zosyn Vi (05/01/20 10:15) Arterial Blood Gas (05/01/20 10:13) Medications Given in ED Current Medications Medications Dose Ordered Sig/Anna Route Start Time Stop Time Status Last Admin Dose Admin Piperacillin Sod/ Tazobactam Sod 4.5 gm/Sodium Chloride 100 ml @ 200 mls/hr ONCE ONCE IV 05/01/20 10:15 05/01/20 10:44 DC 05/01/20 10:29 200 MLS/HR Vital Signs/I&O 05/01/20 05/01/20 09:55 10:13 Temp 36.3 Pulse 69 Resp 18 B/P (MAP) 112/58 (76) Pulse Ox 96 96 O2 Delivery Nasal Cannula Nasal Cannula O2 Flow Rate 2.00 FiO2 96 Capillary Refill : Less Than 3 Seconds Blood Pressure Mean: 76 Departure Communication (Admissions) Chest x-ray: Pulmonary infiltrate and groundglass opacities. EKG: Reviewed Patient with Covid pneumonia with stable vital signs on oxygen without signs of respiratory distress. Normal lactic acid. Patient does have a new infiltrate but is currently on Zithromax. Will expand coverage with instructions to foll ow-up with PCP for further evaluation. Patient will be discharged to the nursing facility. Impression Primary Impression: COVID-19 Disposition: 01 HOME, SELF-CARE Condition: Stable Departure-Patient Inst. Referrals: NO,LOCAL PHYSICIAN (PCP) Primary Care Physician Patient Instructions: Coronavirus Disease 2019 (COVID-19) ED Add. Discharge Instructions: Please continue current medications at the nursing facility and give newly prescribed medication and as directed. Give first dose of doxycycline prior to bedtime. Follow-up with [facility] attending in 1 to 2 days for reevaluation. All discharge instructions reviewed with patient and/or family. Voiced understanding. Scripts Doxycycline Hyclate (Doxycycline Hyclate) 100 Mg Tablet 100 MG PO BID, #20 TAB 0 Refills Prov: SARAH HOPPER DO 05/01/20 SARAH HOPPER DO May 01, 2020 12:38
[2020-05-01] MEDS ORDERED: DOXY100T2 PO (12:42)
[2020-05-01] MEDS ORDERED: DOXYCYCLINE 100 MG (VIBRAMYCIN) TABLET PO STA (12:42)
[2020-05-01 12:58] VITALS: BP 127/61
== END 2020-05-01 13:59 | disposition home or self-care (01) ==
LOC: EDUNIT# 09:53 → ER FS 09:54
DX: U07.1 COVID-19 (principal); J12.82 Pneumonia due to coronavirus disease 2019; I25.10 Atherosclerotic heart disease of native coronary artery without angina pectoris; I50.9 Heart failure, unspecified; E03.9 Hypothyroidism, unspecified; Z95.5 Presence of coronary angioplasty implant and graft; Z85.43 Personal history of malignant neoplasm of ovary; Z88.0 Allergy status to penicillin; Z99.81 Dependence on supplemental oxygen; Z79.82 Long term (current) use of aspirin; Z79.890 Hormone replacement therapy
CPT/HCPCS: 36415; 71045; 80053; 82805; 83605; 85025; 85610; 85730; 87040; 87804

== ENCOUNTER 2020-05-04 07:37 | Emergency (ER) | payer MEDICARE, OTHER ==
[~2020-05-04 07:37] MED LIST changes: +DOXY100T2 PO
[2020-05-04 07:56] LABS: HEMATOCRIT 41 % (35-52); HEMOGLOBIN 12.8 G/DL (11.5-16.0); MEAN CORPUSCULAR HEMOGLOBIN 29 PG (25-34); MEAN CORPUSCULAR HGB CONC 31 G/DL (32-36); MEAN CORPUSCULAR VOLUME 93 FL (80-99); MEAN PLATELET VOLUME 9.8 FL (7.4-10.4); PLATELET COUNT 273 10^3/uL (130-400); WHITE BLOOD COUNT 9.8 10^3/uL (4.3-11.0)
[2020-05-04 07:57] LABS: BASOPHILS # (AUTO) 0.1 10^3/uL (0.0-0.1); BASOPHILS % (AUTO) 1 % (0-10); EOSINOPHILS # (AUTO) 0.2 10^3/uL (0.0-0.3); EOSINOPHILS % (AUTO) 2 % (0-10); LYMPHOCYTES % (AUTO) 10 % (12-44); MONOCYTES # (AUTO) 0.5 X 10^3 (0.0-1.0); MONOCYTES % (AUTO) 5 % (0-12); NEUTROPHILS # (AUTO) 7.8 X 10^3 (1.8-7.8); NEUTROPHILS % (AUTO) 80 % (42-75)
--- NOTE | 2020-05-04 07:57 | ED Respiratory ---
General Chief Complaint: Respiratory Problems Stated Complaint: SOB | COVID+ Nursing Triage Note: brought in by EMS from [facility] due to low O2 sats. Reports wears 2L oxygen and was 80% on 2L. EMS brought in on nonrebreather at 12L with initial O2 sat reading of 96%. Patient has hx of dementia and is unable to answer questions. Tested positive for COVID two weeks ago. Was supposed to be out of quarantine on 05/02. Source: EMS, assisted records History of Present Illness Date Seen by Provider: May 04, 2020 Time Seen by Provider: 07:40 Initial Comments 79-year-old female presents from the assisted with complaint of shortness of air and hypoxia. Patient has had COVID-19 for the past 2 weeks and has been on oxygen 2 L at home. This morning noted to have oxygen saturations in the 70s to 80s. EMS put her on 6 L per nasal cannula and her sats were in upper 80s, switched to a nonrebreather at 12 L and sats attained in the mid 90s. Patient arrives in no distress. History of significant dementia and does not answer questions. Allergies and Home Medications Allergies Coded Allergies: Penicillins (Verified Allergy, Unknown, 10/28/18) Home Medications Acetaminophen 325 Mg Capsule, 650 MG PO Q6H PRN for PAIN-MILD, (Reported) Aspirin 81 Mg Tablet.dr, 81 MG PO DAILY, (Reported) Cetirizine HCl 10 Mg Capsule, 10 MG PO DAILY, (Reported) Cholecalciferol (Vitamin D3) 1,000 Unit Capsule, 1,000 UNIT PO DAILY, (Reported) Cyanocobalamin (Vitamin B-12) 1,000 Mcg Tablet, 1,000 MCG PO DAILY, (Reported) Dexamethasone 6 Mg Tablet, 6 MG PO DAILY Prescribed by: DELFINA RUIZ on 05/04/20 0856 Diphenhydramine HCl 25 Mg Capsule, 25 MG PO DAILY PRN for ITCHING, (Reported) PRN FOR ALLERGIES Donepezil HCl 10 Mg Tablet, 10 MG PO DAILY, (Reported) Doxycycline Hyclate 100 Mg Tablet, 100 MG PO BID Prescribed by: SARAH HOPPER on 05/01/20 1242 Ivermectin 3 Mg Tablet, 3 MG PO DAILY PRN 6 tabs po today, then repeat in 3 days Prescribed by: DELFINA RUIZ on 05/04/20 0928 Levothyroxine Sodium 25 Mcg Tablet, 25 MCG PO DAILY, (Reported) Lisinopril 10 Mg Tablet, 10 MG PO DAILY, (Reported) Melatonin 1 Mg Tablet, 2 MG PO HS, (Reported) Memantine HCl 10 Mg Tablet, 10 MG PO BID, (Reported) Naproxen Sodium 220 Mg Capsule, 220 MG PO BID, (Reported) Quetiapine Fumarate 50 Mg Tablet, 50 MG PO HS, (Reported) Patient Home Medication List Home Medication List Reviewed: Yes Review of Systems Review of Systems Constitutional: no symptoms reported (unable to obtain ROS 2 to Dementia) Past Gbhtral-Cjoxkt-Hdpfwe Hx Past Med/Social Hx: Reviewed Nursing Past Med/Soc Hx Patient Social History Alcohol Use: Denies Use Smoking Status: Never a Smoker 2nd Hand Smoke Exposure: No Recent Infectious Disease Expo: No Recent Hopitalizations: No Seasonal Allergies Seasonal Allergies: No Past Medical History Surgeries: Yes Coronary Stent, Hysterectomy Respiratory: No Cardiac: Yes Coronary Artery Disease, Heart Attack Neurological: Yes Dementia, TIA Genitourinary: No Gastrointestinal: No Musculoskeletal: No Endocrine: Yes Hypothyroidsim HEENT: No Cancer: Yes Ovarian Psychosocial: No Integumentary: No Family Medical History Alzheimer's disease G8 SISTER Diabetes mellitus 19 MOTHER FH: lung cancer 19 FATHER G8 BROTHER Physical Exam Vital Signs - First Documented 05/04/20 07:39 Temp 35.7 Pulse 57 Resp 22 B/P (MAP) 131/52 (78) Pulse Ox 96 O2 Delivery Non Rebreather O2 Flow Rate 12.00 Capillary Refill : Less Than 3 Seconds Height: 5'10.00" Weight: 193lbs. 0.0oz. [id number]; 34.00 BMI Method:Actual General Appearance: WD/WN, no apparent distress HEENT: PERRL/EOMI, normal ENT inspection Neck: supple, normal inspection Respiratory: chest non-tender, lungs clear, normal breath sounds, no respiratory distress, no accessory muscle use Cardiovascular: regular rate, rhythm, no edema, no JVD Gastrointestinal: normal bowel sounds, non tender, soft Extremities: normal range of motion, non-tender, normal inspection, no pedal edema, no calf tenderness Neurologic/Psychiatric: no motor/sensory deficits, alert Skin: normal color, warm/dry Progress/Results/Core Measures Suspected Sepsis Recent Fever Within 48 Hours: No Infection Criteria Present: Documented Infection New/Unexplained Altered Menta: No Sepsis Screen: Possible Sepsis Risk SIRS Temperature: Pulse: 57 Respiratory Rate: 22 Laboratory Tests 05/04/20 07:45: White Blood Count 9.8 Blood Pressure 131 /52 Mean: 78 Laboratory Tests 05/04/20 07:45: Creatinine 1.28, Platelet Count 273, Total Bilirubin 0.4 Results/Orders Lab Results Laboratory Tests Test 05/04/20 07:45 Range/Units White Blood Count 9.8 4.3-11.0 10^3/uL Red Blood Count 4.38 4.35-5.85 10^6/uL Hemoglobin 12.8 11.5-16.0 G/DL Hematocrit 41 35-52 % Mean Corpuscular Volume 93 80-99 FL Mean Corpuscular Hemoglobin 29 25-34 PG Mean Corpuscular Hemoglobin Concent 31 L 32-36 G/DL Red Cell Distribution Width 13.7 10.0-14.5 % Platelet Count 273 130-400 10^3/uL Mean Platelet Volume 9.8 7.4-10.4 FL Immature Granulocyte % (Auto) 2 % Neutrophils (%) (Auto) 80 H 42-75 % Lymphocytes (%) (Auto) 10 L 12-44 % Monocytes (%) (Auto) 5 0-12 % Eosinophils (%) (Auto) 2 0-10 % Basophils (%) (Auto) 1 0-10 % Neutrophils # (Auto) 7.8 1.8-7.8 X 10^3 Lymphocytes # (Auto) 1.0 1.0-4.0 X 10^3 Monocytes # (Auto) 0.5 0.0-1.0 X 10^3 Eosinophils # (Auto) 0.2 0.0-0.3 10^3/uL Basophils # (Auto) 0.1 0.0-0.1 10^3/uL Immature Granulocyte # (Auto) 0.2 H 0.0-0.1 10^3/uL D-Dimer 2.62 H 0.00-0.49 UG/ML Sodium Level 144 135-145 MMOL/L Potassium Level 4.3 3.6-5.0 MMOL/L Chloride Level 106 98-107 MMOL/L Carbon Dioxide Level 27 21-32 MMOL/L Anion Gap 11 5-14 MMOL/L Blood Urea Nitrogen 35 H 7-18 MG/DL Creatinine 1.28 0.60-1.30 MG/DL Estimat Glomerular Filtration Rate 40 BUN/Creatinine Ratio 27 Glucose Level 103 70-105 MG/DL Calcium Level 9.2 8.5-10.1 MG/DL Corrected Calcium 9.8 8.5-10.1 MG/DL Total Bilirubin 0.4 0.1-1.0 MG/DL Aspartate Amino Transf (AST/SGOT) 46 H 5-34 U/L Alanine Aminotransferase (ALT/SGPT) 33 0-55 U/L Alkaline Phosphatase 79 40-136 U/L C-Reactive Protein 13.13 H <0.50 MG/DL Total Protein 7.0 6.4-8.2 GM/DL Albumin 3.2 3.2-4.5 GM/DL My Orders Orders - DELFINA RUIZ DO Ed Iv/Invasive Line Start (05/04/20 07:40) Cbc With Automated Diff (05/04/20 07:40) Comprehensive Metabolic Panel (05/04/20 07:40) Fibrin Degradation Products (05/04/20 07:40) Crp Fs (05/04/20 07:40) Procalcitonin (Pct) (05/04/20 07:40) Chest 1 View Ap/Pa Only (05/04/20 07:40) Dexamethasone Injection (Decadron Inje (05/04/20 07:45) Medications Given in ED Current Medications Medications Dose Ordered Sig/Anna Route Start Time Stop Time Status Last Admin Dose Admin Dexamethasone Sodium Phosphate 6 mg ONCE ONCE IV 05/04/20 07:45 05/04/20 07:46 DC 05/04/20 07:56 6 MG Vital Signs/I&O 05/04/20 05/04/20 07:39 11:21 Temp 35.7 36.4 Pulse 57 52 Resp 22 20 B/P (MAP) 131/52 (78) 115/52 (78) Pulse Ox 96 94 O2 Delivery Non Rebreather Nasal Cannula O2 Flow Rate 12.00 4.00 Capillary Refill : Less Than 3 Seconds Blood Pressure Mean: 78 Progress Note : Progress Note Patient well-appearing in no distress and with normal vital signs. Oxygen saturations 93 to 95% on 4 L per nasal cannula. Labs with no significant abnormality, chest x-ray with mild worsening over the past 3 days of patchy in filtrates consistent with Covid. Discussed patient status with her daughter Leisa and treatment options including adding a steroid (dexamethasone) for the next 1 week as well as starting high-dose vitamin D, C and zinc for couple weeks. Reviewed her medical record and did not see the zinc being given. Her daughter is in agreement with this treatment and plan. Advised follow-up in the ER if her symptoms are worse and unable to keep her sats above 90%. Departure Impression Primary Impression: COVID-19 Additional Impression: Hypoxia Disposition: 01 HOME, SELF-CARE (back to [facility]) Condition: Improved Departure-Patient Inst. Decision time for Depature: 08:59 Referrals: NO,LOCAL PHYSICIAN (PCP/Family) Primary Care Physician Patient Instructions: Coronavirus Disease 2019 (COVID-19) Overview Add. Discharge Instructions: Please start (if not already taking) the following for 4 weeks: 1. Vitamin D3- 4,000iu daily 2. Zinc 100mg daily 3. Vitamin C - 1,000mg twice daily Follow up in the ER if progressively worse and unable to keep oxygen above 90%.....adjust oxygen as needed All discharge instructions reviewed with patient and/or family. Voiced understanding. Scripts Ivermectin (Ivermectin) 3 Mg Tablet 3 MG PO DAILY PRN, #12 TAB 6 tabs po today, then repeat in 3 days Prov: DELFINA RUIZ DO 05/04/20 Dexamethasone (Dexamethasone) 6 Mg Tablet 6 MG PO DAILY for 7 Days, #7 TAB Prov: DELFINA RUIZ DO 05/04/20 DELFINA RUIZ DO May 04, 2020 07:57
--- NOTE | 2020-05-04 07:57 | ED Respiratory ---
General Chief Complaint: Respiratory Problems Stated Complaint: SOB | COVID+ Nursing Triage Note: brought in by EMS from [facility] due to low O2 sats. Reports wears 2L oxygen and was 80% on 2L. EMS brought in on nonrebreather at 12L with initial O2 sat reading of 96%. Patient has hx of dementia and is unable to answer questions. Tested positive for COVID two weeks ago. Was supposed to be out of quarantine on 05/02. Source: EMS, alf records History of Present Illness Date Seen by Provider: May 04, 2020 Time Seen by Provider: 07:40 Allergies and Home Medications Allergies Coded Allergies: Penicillins (Verified Allergy, Unknown, 10/28/18) Home Medications Acetaminophen 325 Mg Capsule, 650 MG PO Q6H PRN for PAIN-MILD, (Reported) Aspirin 81 Mg Tablet.dr, 81 MG PO DAILY, (Reported) Cetirizine HCl 10 Mg Capsule, 10 MG PO DAILY, (Reported) Cholecalciferol (Vitamin D3) 1,000 Unit Capsule, 1,000 UNIT PO DAILY, (Reported) Cyanocobalamin (Vitamin B-12) 1,000 Mcg Tablet, 1,000 MCG PO DAILY, (Reported) Diphenhydramine HCl 25 Mg Capsule, 25 MG PO DAILY PRN for ITCHING, (Reported) PRN FOR ALLERGIES Donepezil HCl 10 Mg Tablet, 10 MG PO DAILY, (Reported) Doxycycline Hyclate 100 Mg Tablet, 100 MG PO BID Prescribed by: SRAAH HOPPER on 05/01/20 1242 Levothyroxine Sodium 25 Mcg Tablet, 25 MCG PO DAILY, (Reported) Lisinopril 10 Mg Tablet, 10 MG PO DAILY, (Reported) Melatonin 1 Mg Tablet, 2 MG PO HS, (Reported) Memantine HCl 10 Mg Tablet, 10 MG PO BID, (Reported) Naproxen Sodium 220 Mg Capsule, 220 MG PO BID, (Reported) Quetiapine Fumarate 50 Mg Tablet, 50 MG PO HS, (Reported) Patient Home Medication List Home Medication List Reviewed: Yes Past Plddhie-Xwtqim-Xosxcs Hx Patient Social History Alcohol Use: Denies Use Smoking Status: Never a Smoker 2nd Hand Smoke Exposure: No Recent Infectious Disease Expo: No Recent Hopitalizations: No Seasonal Allergies Seasonal Allergies: No Past Medical History Surgeries: Yes Coronary Stent, Hysterectomy Respiratory: No Cardiac: Yes Coronary Artery Disease, Heart Attack Neurological: Yes Dementia, TIA Genitourinary: No Gastrointestinal: No Musculoskeletal: No Endocrine: Yes Hypothyroidsim HEENT: No Cancer: Yes Ovarian Psychosocial: No Integumentary: No Family Medical History Alzheimer's disease G8 SISTER Diabetes mellitus 19 MOTHER FH: lung cancer 19 FATHER G8 BROTHER Physical Exam Vital Signs - First Documented 05/04/20 07:39 Temp 35.7 Pulse 57 Resp 22 B/P (MAP) 131/52 (78) Pulse Ox 96 O2 Delivery Non Rebreather O2 Flow Rate 12.00 Capillary Refill : Less Than 3 Seconds Height: 5'10.00" Weight: 193lbs. 0.0oz. 87.354857eq; 34.00 BMI Method:Actual Progress/Results/Core Measures Suspected Sepsis Recent Fever Within 48 Hours: No Infection Criteria Present: Documented Infection New/Unexplained Altered Menta: No Sepsis Screen: Possible Sepsis Risk SIRS Temperature: Pulse: 57 Respiratory Rate: 22 Blood Pressure 131 /52 Mean: 78 Results/Orders My Orders Orders - DELFINA RUIZ DO Ed Iv/Invasive Line Start (05/04/20 07:40) Cbc With Automated Diff (05/04/20 07:40) Comprehensive Metabolic Panel (05/04/20 07:40) Fibrin Degradation Products (05/04/20 07:40) Crp Fs (05/04/20 07:40) Procalcitonin (Pct) (05/04/20 07:40) Chest 1 View Ap/Pa Only (05/04/20 07:40) Dexamethasone Injection (Decadron Inje (05/04/20 07:45) Vital Signs/I&O 05/04/20 07:39 Temp 35.7 Pulse 57 Resp 22 B/P (MAP) 131/52 (78) Pulse Ox 96 O2 Delivery Non Rebreather O2 Flow Rate 12.00 Capillary Refill : Less Than 3 Seconds Blood Pressure Mean: 78 Departure Departure-Patient Inst. Referrals: NO,LOCAL PHYSICIAN (PCP/Family) Primary Care Physician DELFINA RUIZ DO May 04, 2020 07:57
[2020-05-04 08:16] LABS: CREATININE SERUM 1.28 MG/DL (0.60-1.30); POTASSIUM 4.3 MMOL/L (3.6-5.0)
[2020-05-04 08:18] LABS: ALBUMIN 3.2 GM/DL (3.2-4.5); BILIRUBIN,TOTAL 0.4 MG/DL (0.1-1.0); CALCIUM 9.2 MG/DL (8.5-10.1)
--- NOTE | 2020-05-04 08:32 | Diagnostic Imaging Report ---
INDICATION: Hypoxia, COVID 19 COMPARISON STUDY: Frontal view the chest demonstrates bilateral pulmonary infiltrates left greater than right with some increase of the infiltrates on the left. Heart size is normal. IMPRESSION: There are increasing pulmonary infiltrates. Dictated by: Dictated on workstation # [id number]
[2020-05-04] MEDS ORDERED: DEXA6TAB PO (08:56)
--- NOTE | 2020-05-04 09:06 | NUR ---
Called [facility] and spoke with Miryam to update on patient condition and being discharged back to [facility]. Miryam stated they did not have transportation today and would like the daughter to arrange transportation back.
--- NOTE | 2020-05-04 09:20 | NUR ---
Spoke with Leisa Davis about arranging transportation back to [facility]. Leisa asked about ambulance transportation. Transferred call to ambulance barn so she could speak to EMS.
--- NOTE | 2020-05-04 09:26 | NUR ---
Received call from Leisa Davis stating she would like to use ambulance transportation to take patient back to [facility].
[2020-05-04] MEDS ORDERED: IVER3TAB2 PO (09:28)
--- NOTE | 2020-05-04 10:18 | NUR ---
Received call from Leisa Davis stating she had talked to EMS and has now decided to come cotton picker the patient herself. Will be here in approximately 1 hour. This RN called and notified Miryam at [facility] about delay.
[2020-05-04 11:21] VITALS: BP 115/52
== END 2020-05-04 11:21 | disposition home or self-care (01) ==
LOC: EDUNIT# 07:37 → ER FS 07:39
DX: U07.1 COVID-19 (principal); R09.02 Hypoxemia; F03.90 Unspecified dementia, unspecified severity, without behavioral disturbance, psychotic disturbance, mood disturbance, and anxiety; I25.2 Old myocardial infarction; E03.9 Hypothyroidism, unspecified; Z88.0 Allergy status to penicillin; Z85.43 Personal history of malignant neoplasm of ovary; Z95.5 Presence of coronary angioplasty implant and graft; Z86.73 Personal history of transient ischemic attack (TIA), and cerebral infarction without residual deficits; Z83.3 Family history of diabetes mellitus; Z80.1 Family history of malignant neoplasm of trachea, bronchus and lung; Z79.890 Hormone replacement therapy; Z79.82 Long term (current) use of aspirin
CPT/HCPCS: 36415; 71045; 80053; 84145; 85025; 85379; 86141